=== PATIENT | male | born 1990 | race Caucasian/White ===

== ENCOUNTER 2016-05-31 19:00 | Emergency (ER) | payer OTHER ==
[~2016-05-31] VITALS: Ht 180.3 cm; Wt 111.6 kg
[~2016-05-31 19:00] MED LIST: ALBUTEROL0.09 MG/A2 IH; AMOXICILLIN500 M2 PO; AMOXIL500 MG PO; AUGMENTIN 875875 MG PO; CLARITIN-D 12 H1 TAB PO; CLARITIN10 MG PO; COLACE100 MG PO; CYCLOBENZAPRINE10 MG PO; DOXYCYCLINE100 M3 PO; FLONASE ALLERG9.9 ML NAS; HYDROCODONE BIT1 T11 PO; LEVOFLOXACIN500 MG PO; MEDROL DOSEPAK4 MG PO; MOTRIN800 MG PO; MUCINEX600 MG PO; Motrin,Rufen800 MG PO; NAPROSYN500 MG PO; NKHM PO; NO DAILY MEDS; NORCO 325 MG-51 TAB PO; PREDNICOT20 MG PO; PREDNISONE10 MG PO; PREDNISONE20 MG PO; PROCTOFOAM-HC 11 FOA RC; PROVENTIL0.09 MG/A1 INH; PROVENTIL0.09 MG/AC INH; ROBITUSSIN AC 110 ML PO; ROBITUSSIN DM 105 ML PO; SUDAFED 12HR120 MG PO; TESSALON PERLE200 MG PO; TOBRADEX 0.1%-0.5 ML OPH; TOBREX OPHTH S2.5 ML OPH; VALTREX500 MG PO; ZITHROMAX Z PA250 MG PO; ZITHROMAX250 MG PO; ZOFRAN ODT4 MG SL; ZOVIRAX800 MG PO; ZYRTEC10 MG PO
[2016-05-31] MEDS ORDERED: AUGMENTIN 875-875 MG PO (21:38)
[2016-07-01] MEDS ORDERED: AUGMENTIN 875-875 MG PO (12:36)
[2016-07-17] MEDS ORDERED: 'PARAFON FORTE500 M1 PO (16:21)
[2016-07-17] MEDS ORDERED: NAPROSYN500 MG PO (16:21)
== END 2016-05-31 21:41 | disposition home or self-care (01) ==
LOC: ED 19:00
DX: H66.003 Acute suppurative otitis media without spontaneous rupture of ear drum, bilateral (principal); J06.9 Acute upper respiratory infection, unspecified; F17.200 Nicotine dependence, unspecified, uncomplicated; Z98.890 Other specified postprocedural states; Z88.5 Allergy status to narcotic agent

== ENCOUNTER 2016-10-06 16:20 | Emergency (ER) | payer OTHER ==
[~2016-10-06] VITALS: Ht 180.3 cm; Wt 111.6 kg
[~2016-10-06 16:20] MED LIST changes: +'PARAFON FORTE500 M1 PO; +AUGMENTIN 875-875 MG PO
[2016-10-06] MEDS ORDERED: AUGMENTIN 875875 MG PO (17:40)
[2016-10-06] MEDS ORDERED: DELTASONE20 M1 PO (17:40)
== END 2016-10-06 17:54 | disposition home or self-care (01) ==
LOC: ED 16:20
DX: J40 Bronchitis, not specified as acute or chronic (principal); J01.90 Acute sinusitis, unspecified; F17.200 Nicotine dependence, unspecified, uncomplicated; Z88.6 Allergy status to analgesic agent

== ENCOUNTER 2017-05-26 15:11 | Emergency (ER) | payer OTHER ==
[~2017-05-26] VITALS: Ht 180.3 cm; Wt 117.9 kg
[~2017-05-26 15:11] MED LIST changes: +DELTASONE20 M1 PO
[2017-05-26] MEDS ORDERED: ZYRTEC10 MG PO (15:21)
[2017-05-26] MEDS ORDERED: NAPROSYN500 MG PO (15:29)
== END 2017-05-26 16:50 | disposition home or self-care (01) ==
LOC: ED 15:11
DX: M25.562 Pain in left knee (principal); R03.0 Elevated blood-pressure reading, without diagnosis of hypertension; F17.200 Nicotine dependence, unspecified, uncomplicated; Z88.6 Allergy status to analgesic agent; Z79.899 Other long term (current) drug therapy

== ENCOUNTER 2017-08-21 21:23 | Emergency (ER) | payer OTHER ==
[~2017-08-21] VITALS: Ht 180.3 cm; Wt 111.6 kg
[2017-08-21 21:56] LABS: BASO % 0.5 % (0.0-1.0); EOS # 0.3 10*3/uL (0.0-0.4); EOS % 5.2 % (1.0-4.0); HEMATOCRIT 45.4 % (42.0-52.0); HEMOGLOBIN 15.8 g/dl (14.0-18.0); LYMPH # 1.3 10*3/uL (1.3-4.4); LYMPH % 22.4 % (27.0-41.0); MEAN CELL VOLUME 93.8 fl (80.0-94.0); MEAN CORPUSCULAR HGB 32.6 pg (27.0-31.0); MEAN CORPUSCULAR HGB CONC 34.8 g/dl (33.0-37.0); MEAN PLATELET VOLUME 10.9 fl (9.6-12.3); MONO # 0.5 10*3/uL (0.1-1.0); MONO % 8.2 % (3.0-9.0); NEUT # 3.5 10*3/uL (2.3-7.9); NEUT % 63.3 % (47.0-73.0); PLATELET COUNT AUTOMATED 157 10*3/uL (130-400); RED BLOOD COUNT 4.84 10*6/uL (4.50-5.90); RED CELL DISTRI WIDTH 11.9 % (0-14.5); WHITE BLOOD COUNT 5.6 10*3/uL (4.8-10.8)
[2017-08-21 22:11] LABS: ALBUMIN 3.8 gm/dl (3.1-4.5); ALKALINE PHOSPHATASE 52 U/L (45-117); BUN 12 mg/dl (7-24); CHLORIDE 101 mmol/L (98-107); CREATININE 1.09 mg/dL (0.70-1.30); LIPASE 147 U/L (73-393); POTASSIUM 3.8 mmol/L (3.5-5.1); SGOT/AST 64 IU/L (3-35); SGPT/ALT 117 U/L (12-78); SODIUM 138 mmol/L (136-145); TOTAL PROTEIN 6.9 gm/dL (6.4-8.2)
[2017-08-21] MEDS ORDERED: DICYCLOMINE HCL10 MG PO (22:34)
== END 2017-08-21 23:39 | disposition home or self-care (01) ==
LOC: ED 21:23
PROVIDERS: Physician Assistant
DX: R10.11 Right upper quadrant pain (principal); F17.200 Nicotine dependence, unspecified, uncomplicated; Z98.890 Other specified postprocedural states; Z79.899 Other long term (current) drug therapy; Z88.5 Allergy status to narcotic agent

== ENCOUNTER 2017-10-03 12:57 | Emergency (ER) | payer OTHER ==
[~2017-10-03] VITALS: Ht 180.3 cm; Wt 112.5 kg
[~2017-10-03 12:57] MED LIST changes: +DICYCLOMINE HCL10 MG PO
[2017-10-03] MEDS ORDERED: PREDNISONE10 MG PO (13:21)
[2017-10-03] MEDS ORDERED: CLARITIN10 MG PO (13:21)
[2017-10-03] MEDS ORDERED: FLONASE ALLERG9.9 ML NAS (13:21)
== END 2017-10-03 13:59 | disposition home or self-care (01) ==
LOC: ED 12:57
DX: J30.2 Other seasonal allergic rhinitis (principal); R03.0 Elevated blood-pressure reading, without diagnosis of hypertension; F17.200 Nicotine dependence, unspecified, uncomplicated; Z98.890 Other specified postprocedural states; Z88.5 Allergy status to narcotic agent; Z79.899 Other long term (current) drug therapy

== ENCOUNTER 2017-11-01 14:40 | Emergency (ER) | payer OTHER ==
[~2017-11-01] VITALS: Ht 180.3 cm; Wt 111.6 kg
[2017-11-01] MEDS ORDERED: NORCO 5-325 TA1 EACH PO (16:55)
== END 2017-11-01 17:10 | disposition home or self-care (01) ==
LOC: ED 14:40
DX: S62.91XA Unspecified fracture of right hand, initial encounter for closed fracture (principal); Z88.6 Allergy status to analgesic agent; Z79.899 Other long term (current) drug therapy; W23.0XXA Caught, crushed, jammed, or pinched between moving objects, initial encounter; Y93.89 Activity, other specified; Y92.89 Other specified places as the place of occurrence of the external cause; Y99.8 Other external cause status

== ENCOUNTER 2017-11-08 14:52 | Emergency (ER) | payer OTHER ==
[~2017-11-08] VITALS: Ht 180.3 cm; Wt 111.6 kg
[~2017-11-08 14:52] MED LIST changes: +NORCO 5-325 TA1 EACH PO
[2017-11-08 15:22] LABS: BASO % 0.7 % (0.0-1.0); EOS # 0.1 10*3/uL (0.0-0.4); EOS % 1.1 % (1.0-4.0); HEMATOCRIT 48.4 % (42.0-52.0); HEMOGLOBIN 16.7 g/dl (14.0-18.0); LYMPH # 0.6 10*3/uL (1.3-4.4); LYMPH % 9.3 % (27.0-41.0); MEAN CELL VOLUME 94.9 fl (80.0-94.0); MEAN CORPUSCULAR HGB 32.7 pg (27.0-31.0); MEAN CORPUSCULAR HGB CONC 34.5 g/dl (33.0-37.0); MEAN PLATELET VOLUME 12.2 fl (9.6-12.3); MONO # 0.6 10*3/uL (0.1-1.0); MONO % 10.5 % (3.0-9.0); NEUT # 4.8 10*3/uL (2.3-7.9); NEUT % 78.1 % (47.0-73.0); PLATELET COUNT AUTOMATED 159 10*3/uL (130-400); RED CELL DISTRI WIDTH 12.2 % (0-14.5); WHITE BLOOD COUNT 6.1 10*3/uL (4.8-10.8)
[2017-11-08 15:39] LABS: BILIRUBIN NEGATIVE (NEGATIVE); BLOOD NEGATIVE (NEGATIVE); CLARITY CLEAR (CLEAR); COLOR YELLOW (YELLOW); GLUCOSE NEGATIVE (NEGATIVE); KETONE TRACE (NEGATIVE); LEUKO ESTERASE NEGATIVE (NEGATIVE); NITRITE NEGATIVE (NEGATIVE); PH 5.5 (5.0-9.0); SPECIFIC GRAVITY >= 1.030 (1.005-1.030); UROBILINOGEN 0.2 E.U./dl (0.2-1.0)
[2017-11-08 15:47] LABS: BACTERIA TRACE; EPITHELIAL CELLS 0-2; MUCOUS TRACE; RBC 0-2 rbc/hpf (0-2); WBC 0-2 wbc/hpf (0-5)
[2017-11-08 16:12] LABS: ALBUMIN 3.9 gm/dl (3.1-4.5); ALKALINE PHOSPHATASE 50 U/L (45-117); BUN 9 mg/dl (7-24); CHLORIDE 107 mmol/L (98-107); CREATININE 1.19 mg/dL (0.70-1.30); LIPASE 120 U/L (73-393); POTASSIUM 3.9 mmol/L (3.5-5.1); SGOT/AST 33 IU/L (3-35); SGPT/ALT 73 U/L (12-78); SODIUM 141 mmol/L (136-145); TOTAL PROTEIN 7.3 gm/dL (6.4-8.2)
[2017-11-08] MEDS ORDERED: DICYCLOMINE HCL20 MG PO (17:44)
[2017-11-08] MEDS ORDERED: FLAGYL500 MG PO (17:44)
[2017-11-08] MEDS ORDERED: CIPRO500 MG PO (17:44)
== END 2017-11-08 17:50 | disposition home or self-care (01) ==
LOC: ED 14:52
PROVIDERS: Nurse Practitioner Family
DX: K52.9 Noninfective gastroenteritis and colitis, unspecified (principal); Z88.5 Allergy status to narcotic agent; Z79.899 Other long term (current) drug therapy

== ENCOUNTER 2018-06-05 14:01 | Emergency (ER) | payer OTHER ==
[~2018-06-05] VITALS: Ht 180.3 cm; Wt 108.9 kg
[~2018-06-05 14:01] MED LIST changes: +CIPRO500 MG PO; +DICYCLOMINE HCL20 MG PO; +FLAGYL500 MG PO
[2018-06-05] MEDS ORDERED: PREDNISONE10 MG PO (14:09)
[2018-06-05] MEDS ORDERED: CLARITIN10 MG PO (14:09)
[2018-06-05] MEDS ORDERED: FLONASE ALLERG9.9 ML NAS (14:09)
[2018-09-19] MEDS ORDERED: PRINIVIL10 MG PO (17:19)
== END 2018-06-05 15:26 | disposition home or self-care (01) ==
LOC: ED 14:01
DX: B34.9 Viral infection, unspecified (principal); R03.0 Elevated blood-pressure reading, without diagnosis of hypertension; F17.200 Nicotine dependence, unspecified, uncomplicated; Z88.5 Allergy status to narcotic agent

== ENCOUNTER → 2019-02-18 | Outpatient (CLI) | payer SELFPAY ==
[~2019-02-18] MED LIST changes: +PRINIVIL10 MG PO
== END | disposition home or self-care (01) ==
LOC: RESCLI 02:01
DX: M25.512 Pain in left shoulder (principal); J30.2 Other seasonal allergic rhinitis; K21.9 Gastro-esophageal reflux disease without esophagitis; I10 Essential (primary) hypertension; Z79.899 Other long term (current) drug therapy

== ENCOUNTER → 2019-02-22 | Outpatient (CLI) | payer BC ==
[2019-02-22 14:56] LABS: CHOLESTEROL 120 mg/dL (<200); HDL CHOLESTEROL 35 mg/dl (40-60); LDL CHOLESTEROL 56 mg/dL (9-159); TRIGLYCERIDES 146 mg/dl (<150); VLDL CHOLESTEROL 29 mg/dL (6-40)
== END | disposition home or self-care (01) ==
LOC: LAB 13:30
PROVIDERS: Hospitalist
DX: M25.512 Pain in left shoulder (principal); I10 Essential (primary) hypertension

== ENCOUNTER → 2019-03-25 | Outpatient (CLI) | payer BC | END | disposition home or self-care (01) | LOC: RESCLI 00:21 | DX: M75.02 Adhesive capsulitis of left shoulder (principal); I10 Essential (primary) hypertension; J30.2 Other seasonal allergic rhinitis; M87.059 Idiopathic aseptic necrosis of unspecified femur; K21.9 Gastro-esophageal reflux disease without esophagitis; Z79.899 Other long term (current) drug therapy; Z88.8 Allergy status to other drugs, medicaments and biological substances ==

== ENCOUNTER 2019-10-16 22:37 | Emergency (ER) | payer OTHER, BC ==
[2019-10-17] MEDS ORDERED: NORCO 5-325 TA1 EACH PO (01:04)
[2019-10-17] MEDS ORDERED: Motrin,Rufen800 MG PO (01:04)
== END 2019-10-17 02:10 | disposition home or self-care (01) ==
LOC: ED 22:37
DX: S86.119A Strain of other muscle(s) and tendon(s) of posterior muscle group at lower leg level, unspecified leg, initial encounter (principal); J45.909 Unspecified asthma, uncomplicated; F32.9 Major depressive disorder, single episode, unspecified; V89.2XXA Person injured in unspecified motor-vehicle accident, traffic, initial encounter; Y93.89 Activity, other specified; Y92.89 Other specified places as the place of occurrence of the external cause; Y99.8 Other external cause status

== ENCOUNTER → 2019-11-19 | Outpatient (CLI) | payer BC | END | disposition home or self-care (01) | LOC: RAD 12:57 | DX: M25.561 Pain in right knee (principal) ==